=== PATIENT | female | born 1940 | race Two or more races ===

== ENCOUNTER → 2017-10-24 | Outpatient (CLI) | payer OTHER ==
[~2017-10-24] MED LIST: COZAAR100 MG; GLUCOPHAGE XR750 MG; LIPITOR20 MG; PLAVIX75 MG; SYNTHROID50 MCG
== END | disposition home or self-care (01) ==
LOC: NUCLEAR 08:22
DX: I87.2 Venous insufficiency (chronic) (peripheral) (principal)

== ENCOUNTER 2018-08-10 09:27 | Outpatient (CLI) | payer OTHER | END 2018-08-10 10:30 | disposition home or self-care (01) | LOC: RAD 501 09:27 | DX: H25.011 Cortical age-related cataract, right eye (principal); D68.8 Other specified coagulation defects; Z98.41 Cataract extraction status, right eye ==

== ENCOUNTER 2019-05-08 14:11 | Outpatient (CLI) | payer OTHER | END 2019-05-08 15:00 | disposition home or self-care (01) | LOC: RAD 14:11 | DX: M12.852 Other specific arthropathies, not elsewhere classified, left hip (principal); M46.47 Discitis, unspecified, lumbosacral region ==